=== PATIENT | male | born 1970 | race Caucasian/White ===

== ENCOUNTER 2023-01-01 07:57 | Emergency (ER) | payer OTHER ==
[~2023-01-01] VITALS: Ht 162.6 cm; Wt 62.1 kg
[2023-01-01 08:17] VITALS: BP 111/77; PULSE 67; RESP 18; TEMP 98.5; O2SAT 96
[2023-01-01] MEDS ORDERED: predniSONE 20 MG TAB PO ONE (08:30)
[2023-01-01] MEDS ORDERED: ALBUTEROL 0.083% 2.5 MG/3 ML NEBU INH ONE (08:30)
[2023-01-01 08:46] VITALS: PULSE 71; RESP 16; O2SAT 98
[2023-01-01] MEDS ORDERED: AZIT250T4 PO (09:31)
[2023-01-01] MEDS ORDERED: PRED20TA5 PO (09:31)
[2023-01-01] MEDS ORDERED: ALBU0.0912 IH (09:31)
[2023-01-01 09:42] VITALS: BP 110/77; PULSE 72; RESP 16; TEMP 98.6; O2SAT 99
== END 2023-01-01 09:42 | disposition home or self-care (01) ==
LOC: MED 07:57
DX: R06.2 Wheezing (principal); R05.9 Cough, unspecified; R09.81 Nasal congestion; Z79.899 Other long term (current) drug therapy
CPT/HCPCS: 71045; 94640; 99283; J7512; J7613